=== PATIENT | female | born 1935 | race Caucasian/White ===

== ENCOUNTER 2017-01-26 17:47 | Observation (INO) | payer MEDICARE, BC ==
[~2017-01-26] VITALS: Ht 157.5 cm; Wt 70.8 kg
[2017-01-26 18:43] LABS: BASOPHILS 0.1 % (0-2); EOSINOPHILS 0.9 % (0-7); HEMATOCRIT 34.4 % (36.0-48.0); HEMOGLOBIN 10.2 g/dL (12-16); IMMATURE GRANULOCYTES 0.3 % (0-5); LYMPHOCYTES 17.7 % (15-50); MCH 28.1 pg (26.0-34.0); MCHC 29.7 g/dL (31.0-37.0); MCV 94.8 fL (80.0-100.0); MEAN PLATELET VOLUME 10.5 fL (7.4-10.4); MONOCYTES 8.2 % (2-11); NEUTROPHILS 72.8 % (40-80); PLATELET COUNT 123 10x3/uL (130-400); RBC 3.63 10x6/uL (4.00-5.40); RDW 15.4 % (11.5-14.5); WBC 7.7 10x3/uL (4.8-10.8)
[2017-01-26 19:10] LABS: ALBUMIN 2.4 g/dL (3.4-5.0); ANION GAP 13.6 mmol/L (8-16); BILIRUBIN - TOTAL 0.51 mg/dL (0.2-1.3); CALCIUM 8.2 mg/dL (8.5-10.1); CARBON DIOXIDE 27.6 mmol/L (21.0-32.0); CREATININE - SERUM 4.2 mg/dL (0.6-1.3); POTASSIUM - SERUM 5.2 mmol/L (3.5-5.1); PROTEIN - SERUM 6.2 g/dL (6.4-8.2)
[2017-01-26 21:03] LABS: APPEARANCE HAZY (CLEAR); COLOR YELLOW (YELLOW)
[2017-01-26 21:05] LABS: BILIRUBIN NEGATIVE (NEGATIVE); GLUCOSE NEGATIVE (NEGATIVE); KETONE NEGATIVE (NEGATIVE); LEUKOCYTE ESTERASE 2+ (NEGATIVE); NITRITE POSITIVE (NEGATIVE); PROTEIN 1+ mg/dL (NEGATIVE); UROBILINOGEN NORMAL (NORMAL)
[2017-01-26 21:07] LABS: BACTERIA MANY /hpf (NONE SEEN); EPITHELIAL CELLS 0-5 /hpf (0-5); WHITE CELLS - URINE >50 /hpf (0-5)
--- NOTE | 2017-01-26 23:30 | NUR ---
RECEIVED PATIENT FROM ER WITH NO VISIBLE SIGNS OF DISTRESS. BED IN LOWEST POSITION, CALL LIGHT WITHIN REACH, AND BED ALARM ON. ENCOURAGED THE PATIENT TO CALL IF SHE HAS NEEDS.
[2017-01-26 23:52] VITALS: BP 145/72
[2017-01-27 00:29] VITALS: BP 145/72; BMI 28.6
[2017-01-27] MEDS ORDERED: ATIVAN1 MG PO (00:40)
[2017-01-27] MEDS ORDERED: LASIX40 MG PO (00:46)
[2017-01-27] MEDS ORDERED: GENTAMICIN 0.3 %5 ML EACH EYE (00:47)
[2017-01-27] MEDS ORDERED: DURAGESIC1 PATCH .4 TRANSDERM (00:49)
[2017-01-27] MEDS ORDERED: CARBIDOPA-LEVO1 EAC4 PO (00:52)
[2017-01-27] MEDS ORDERED: HALOPERIDOL2 MG PO (00:53)
[2017-01-27] MEDS ORDERED: ISOSORBIDE DINI30 MG PO (00:55)
[2017-01-27] MEDS ORDERED: ANUSOL SUPP1 SUPP RC (00:57)
[2017-01-27] MEDS ORDERED: HEMORRHOIDAL OI57 GM TP (00:58)
[2017-01-27] MEDS ORDERED: TUMS500 MG PO (01:15)
[2017-01-27] MEDS ORDERED: MIRALAX17 GM PO (01:15)
[2017-01-27] MEDS ORDERED: LEVOXYL125 MCG PO (01:16)
[2017-01-27] MEDS ORDERED: TRAZODONE HCL50 MG PO (01:17)
[2017-01-27] MEDS ORDERED: LANTUS SOL100 UNIT/1 SC (01:18)
[2017-01-27] MEDS ORDERED: LISINOPRIL10 MG PO (01:18)
[2017-01-27] MEDS ORDERED: HUMALOG 30100 UNITS/ SC (01:22)
[2017-01-27] MEDS ORDERED: VOLTAREN100 GM TOPICAL (01:23)
[2017-01-27] MEDS ORDERED: SENNA LAXATIVE8.6 MG PO (01:24)
[2017-01-27] MEDS ORDERED: HYDROCODONE-APA1 TAB PO (01:24)
[2017-01-27] MEDS ORDERED: TYLENOL650 MG RC (01:25)
[2017-01-27] MEDS ORDERED: ACETAMINOPHEN325 MG PO (01:27)
[2017-01-27] MEDS ORDERED: IPRAT-ALBUT 0.5-3 ML UPD (01:35)
[2017-01-27] MEDS ORDERED: NITROSTAT0.4 MG SL (01:35)
[2017-01-27] MEDS ORDERED: METOPROLOL TART50 MG PO (01:36)
[2017-01-27] MEDS ORDERED: PRINIVIL20 MG PO (01:37)
[2017-01-27] MEDS ORDERED: NYSTATIN1 PWD TOPICAL (01:38)
[2017-01-27] MEDS ORDERED: PLAVIX75 MG PO (01:39)
[2017-01-27] MEDS ORDERED: VITAMIN D31000 UNIT PO (01:39)
[2017-01-27] MEDS ORDERED: BUPROPION HCL100 MG PO (01:40)
[2017-01-27] MEDS ORDERED: DULCOLAX10 MG/SUPP RC (01:41)
[2017-01-27] MEDS ORDERED: BAYER CHEWABLE81 MG PO (01:41)
[2017-01-27] MEDS ORDERED: ANTIFUNGAL TOPICAL (01:45)
--- NOTE | 2017-01-27 02:31 | NUR ---
PAGED DR. PICHARDO IN REGARDS TO GETTING SOMETHING FOR ANXIETY
[2017-01-27 03:58] VITALS: BP 110/65
--- NOTE | 2017-01-27 07:55 | NUR ---
SLEEPING, BREATHING EVEN UNLABORED, CALL LIGHT IN REACH, SIDE RAILS UP X2, NO DISTRESS NOTED, BED LOWEST POSITION, BED ALARM ON, WILL CONTINUE TO MONITOR
[2017-01-27 09:58] LABS: ANION GAP 13.5 mmol/L (8-16); CALCIUM 8.4 mg/dL (8.5-10.1); CARBON DIOXIDE 26.3 mmol/L (21.0-32.0); CREATININE - SERUM 3.8 mg/dL (0.6-1.3); POTASSIUM - SERUM 4.8 mmol/L (3.5-5.1)
[2017-01-27 10:13] VITALS: Ht 157.5 cm; Wt 70.8 kg
--- NOTE | 2017-01-27 10:30 | NUR ---
PATIENT IN LOW DASH POSITION RESTING QUIETLY. RESPIRATIONS EVEN AND ULABORED. BED IN LOW POSITION. CALL LIGHT IN REACH. SIDE RAILS UP X2.
--- NOTE | 2017-01-27 14:45 | NUR ---
CALLED REPORT TO LEONIDAS YEPEZ AT [facility]
--- NOTE | 2017-01-27 17:00 | NUR ---
DISCHARGE PAPERS GIVEN TO EMS, IV REMOVED TIP INTACT, DISCHARGED PER STRETCHER WITH EMS BACK TO [facility]
--- NOTE | 2017-01-27 19:52 | NUR ---
LATE ENTRY 1130 DR PICHARDO HAD CM SPEAK WITH [facility] REGARDING GOAL FOR HOSPICE PATIENT SENT TO ER W/ DECREASED MENTAL STATUS & DECREASE PO INTAKE, [facility] WAS ADMITTING HOSPICE DX WHEN CM SPOKE WITH HOSPICE. SPOKE WITH LEONIDAS AT [facility] AT 1130. THEY WERE TOLD TO SEND PATIENT TO ER BY HOSPICE. TC TO [facility]. CM SPOKE WITH SUPERVISOR MENDING NURSE, KASSANDRA Jacobson AT 1137. DISCUSSED PLAN OF CARE. PLAN WAS FOR PATIENT TO RETURN TO [facility] ON HOSPICE CARE. SHE STATED HOSPICE HAD BEEN POSSIBLY REVOCATED. NO REVOCATION FOUND. PATIENT HAD BEEN ADMITTED TO HOSPICE W/ DECLINING MENTAL STATUS, SHE HAD STOP EATING AND DRINKING. ADMITTING HOSPICE DX WAS [facility]. ADVISED DR PICHARDO WOULD LIKE TO RESPECT HOSPICE ADMIT AND RETURN PATIENT TO FACILITY. 1250 -TC BACK TO CHARGE NURSE, LEONIDAS AT [facility] AT [phone]. PATIENT CAN RETURN. 1301 -TC BACK TO KASSANDRA Jacobson AT [facility] AT [phone]. THEY WILL FOLLOW. SPOKE WITH DR PICHARDO ON HIS 2ND ROUND. ADVISED PRIMARY NURSE OF PLAN. PCS FORM COMPLETED FOR AMBULANCE TRANSFER BACK TO FACILITY. PATIENT DISCHARGED At 1700.
== END 2017-01-27 18:04 | disposition home health service (06) ==
LOC: D.ER 17:47 → D.MS 21:48 → OBSVTIME 21:48 → D.MS 01-27 18:04
PROVIDERS: Emergency Medicine; ADMIT Family Medicine
DX: N39.0 Urinary tract infection, site not specified (principal); G31.83 Neurocognitive disorder with Lewy bodies; F02.80 Dementia in other diseases classified elsewhere, unspecified severity, without behavioral disturbance, psychotic disturbance, mood disturbance, and anxiety; E11.9 Type 2 diabetes mellitus without complications; I48.91 Unspecified atrial fibrillation; I25.10 Atherosclerotic heart disease of native coronary artery without angina pectoris; J44.9 Chronic obstructive pulmonary disease, unspecified; E86.0 Dehydration

== ENCOUNTER 2017-01-27 21:35 | Emergency (ER) | payer MEDICARE, BC ==
[2017-01-27 10:13] VITALS: BMI 28.5
[~2017-01-27 21:35] MED LIST: ACETAMINOPHEN325 MG PO; ANTIFUNGAL TOPICAL; ANUSOL SUPP1 SUPP RC; ATIVAN1 MG PO; BAYER CHEWABLE81 MG PO; BUPROPION HCL100 MG PO; CARBIDOPA-LEVO1 EAC4 PO; DULCOLAX10 MG/SUPP RC; DURAGESIC1 PATCH .4 TRANSDERM; GENTAMICIN 0.3 %5 ML EACH EYE; HALOPERIDOL2 MG PO; HEMORRHOIDAL OI57 GM TP; HUMALOG 30100 UNITS/ SC; HYDROCODONE-APA1 TAB PO; IPRAT-ALBUT 0.5-3 ML UPD; ISOSORBIDE DINI30 MG PO; LANTUS SOL100 UNIT/1 SC; LASIX40 MG PO; LEVOXYL125 MCG PO; LISINOPRIL10 MG PO; METOPROLOL TART50 MG PO; MIRALAX17 GM PO; NITROSTAT0.4 MG SL; NYSTATIN1 PWD TOPICAL; PLAVIX75 MG PO; PRINIVIL20 MG PO; SENNA LAXATIVE8.6 MG PO; TRAZODONE HCL50 MG PO; TUMS500 MG PO; TYLENOL650 MG RC; VITAMIN D31000 UNIT PO; VOLTAREN100 GM TOPICAL
[2017-01-27 22:45] LABS: APPEARANCE CLOUDY (CLEAR); COLOR YELLOW (YELLOW)
[2017-01-27 22:46] LABS: AMORPHOUS SEDIMENT <1+ /lpf (NONE SEEN); BACTERIA MANY /hpf (NONE SEEN); BILIRUBIN NEGATIVE (NEGATIVE); EPITHELIAL CELLS 0-5 /hpf (0-5); GLUCOSE NEGATIVE (NEGATIVE); KETONE SMALL mg/dL (NEGATIVE); LEUKOCYTE ESTERASE 2+ (NEGATIVE); NITRITE POSITIVE (NEGATIVE); PROTEIN 2+ mg/dL (NEGATIVE); SPECIFIC GRAVITY 1.015 (1.005-1.020); UROBILINOGEN NORMAL (NORMAL); WHITE CELLS - URINE >50 /hpf (0-5)
[2017-01-27 23:55] LABS: BASOPHILS 0.1 % (0-2); EOSINOPHILS 0.7 % (0-7); HEMATOCRIT 34.8 % (36.0-48.0); HEMOGLOBIN 10.5 g/dL (12-16); IMMATURE GRANULOCYTES 0.3 % (0-5); LYMPHOCYTES 12.3 % (15-50); MCH 28.2 pg (26.0-34.0); MCHC 30.2 g/dL (31.0-37.0); MCV 93.5 fL (80.0-100.0); MEAN PLATELET VOLUME 10.2 fL (7.4-10.4); MONOCYTES 8.1 % (2-11); NEUTROPHILS 78.5 % (40-80); PLATELET COUNT 120 10x3/uL (130-400); RBC 3.72 10x6/uL (4.00-5.40); RDW 15.4 % (11.5-14.5); WBC 9.4 10x3/uL (4.8-10.8)
[2017-01-28 00:11] LABS: ALBUMIN 2.3 g/dL (3.4-5.0); BILIRUBIN - TOTAL 0.59 mg/dL (0.2-1.3); CALCIUM 8.6 mg/dL (8.5-10.1); CREATININE - SERUM 3.5 mg/dL (0.6-1.3); POTASSIUM - SERUM 4.4 mmol/L (3.5-5.1); PROTEIN - SERUM 6.8 g/dL (6.4-8.2)
[2017-01-28 00:13] LABS: ANION GAP 10.4 mmol/L (8-16)
== END 2017-01-28 01:37 | disposition home or self-care (01) ==
LOC: D.ER 21:35
PROVIDERS: Family Medicine
DX: R41.82 Altered mental status, unspecified (principal); L03.119 Cellulitis of unspecified part of limb; I12.9 Hypertensive chronic kidney disease with stage 1 through stage 4 chronic kidney disease, or unspecified chronic kidney disease; N18.9 Chronic kidney disease, unspecified; I25.10 Atherosclerotic heart disease of native coronary artery without angina pectoris; G20 Parkinson's disease

== ENCOUNTER 2017-01-28 10:56 | Emergency (ER) | payer MEDICARE, BC ==
[2017-01-27 10:13] VITALS: BMI 28.5
[2017-01-28 12:18] LABS: BASOPHILS 0.1 % (0-2); EOSINOPHILS 1.1 % (0-7); HEMATOCRIT 36.8 % (36.0-48.0); HEMOGLOBIN 11.2 g/dL (12-16); IMMATURE GRANULOCYTES 0.3 % (0-5); LYMPHOCYTES 12.7 % (15-50); MCH 27.9 pg (26.0-34.0); MCHC 30.4 g/dL (31.0-37.0); MEAN PLATELET VOLUME 10.6 fL (7.4-10.4); MONOCYTES 8.3 % (2-11); NEUTROPHILS 77.5 % (40-80); PLATELET COUNT 109 10x3/uL (130-400); RBC 4.02 10x6/uL (4.00-5.40); RDW 15.2 % (11.5-14.5); WBC 10.4 10x3/uL (4.8-10.8)
[2017-01-28 12:19] LABS: MCV 91.5 fL (80.0-100.0)
[2017-01-28 12:22] LABS: APTT 30.8 SECONDS (22.8-39.4); INR 1.13 (0.85-1.17); PROTIME 14.4 SECONDS (11.6-15.0)
[2017-01-28 13:15] LABS: ALBUMIN 2.4 g/dL (3.4-5.0); BILIRUBIN - TOTAL 0.84 mg/dL (0.2-1.3); CALCIUM 8.5 mg/dL (8.5-10.1); CARBON DIOXIDE 25.4 mmol/L (21.0-32.0); CREATININE - SERUM 3.4 mg/dL (0.6-1.3); PROTEIN - SERUM 6.6 g/dL (6.4-8.2)
[2017-01-28 13:17] LABS: ANION GAP 8.2 mmol/L (8-16); POTASSIUM - SERUM 3.6 mmol/L (3.5-5.1)
[2017-01-28 13:22] LABS: TROPONIN-I 0.236 ng/mL (0.000-0.060)
== END 2017-01-28 15:06 ==
LOC: D.ER 10:56
PROVIDERS: Nurse Practitioner Family
DX: N18.9 Chronic kidney disease, unspecified (principal); F03.90 Unspecified dementia, unspecified severity, without behavioral disturbance, psychotic disturbance, mood disturbance, and anxiety; W05.0XXA Fall from non-moving wheelchair, initial encounter; Y93.89 Activity, other specified; Y92.129 Unspecified place in nursing home as the place of occurrence of the external cause